=== PATIENT | female | born 1990 | race Caucasian/White ===

== ENCOUNTER 2022-07-06 16:06 | Day surgery (SDC) | payer BC, OTHER ==
[2022-07-06 17:24] VITALS: BMI 26.8
[2022-07-06] MEDS ORDERED: hydrALAZINE 20 MG/ML VIAL SLOW IVP PRN (18:06)
== END 2022-07-06 18:20 | disposition home or self-care (01) ==
LOC: CSHLD/OP 16:06
PROVIDERS: ATTEND Obstetrics & Gynecology
DX: O47.02 False labor before 37 completed weeks of gestation, second trimester (principal); O09.33 Supervision of pregnancy with insufficient antenatal care, third trimester; Z80.41 Family history of malignant neoplasm of ovary; Z3A.39 39 weeks gestation of pregnancy
CPT/HCPCS: 99282

== ENCOUNTER 2022-07-15 16:26 | Inpatient (IN) | payer BC ==
[~2022-07-15 16:26] MED LIST: Bupivacaine/Epinephrine 0.25% 30 ML VIAL ONE
[2022-07-15] MEDS ORDERED: Ibuprofen 800 MG TAB PO PRN (17:18)
[2022-07-15] MEDS ORDERED: Promethazine HCl 25 MG/ML VIAL IM PRN ×2 (17:18→18:50)
[2022-07-15] MEDS ORDERED: Lidocaine 1% (PF) 30 ML VIAL SC PRN (17:18)
[2022-07-15] MEDS ORDERED: Misoprostol 200 MCG TAB PR PRN (17:18)
[2022-07-15] MEDS ORDERED: Ondansetron PF 4 MG/2 ML Vial IVP PRN ×3 (17:18→23:20)
[2022-07-15] MEDS ORDERED: HYDROcodone/Acetaminophen 5/325 mg Tablet PO PRN ×4 (17:18→23:20)
[2022-07-15] MEDS ORDERED: hydrALAZINE 20 MG/ML VIAL SLOW IVP PRN ×2 (17:18→23:20)
[2022-07-15 17:30] VITALS: BMI 29.9
[2022-07-15] MEDS ORDERED: NS w/ Oxytocin 30 units 500 ML IV SCH (17:30)
[2022-07-15] MEDS ORDERED: Lactated Ringer's 1,000 ML IV SCH (17:30)
[2022-07-15 18:13] LABS: Hemoglobin 12.9 g/dL (12.0-15.5); Mean Corpuscular HGB CONC 33.3 g/dL (32.0-36.0); Mean Corpuscular Hemoglobin 28.2 pg (27.0-33.0); Mean Corpuscular Volume 84.7 fl (81.6-98.3); Mean Platelet Volume 10.4 fl (7.4-10.4); Platelet Count 255 10x3/uL (150-450); RBC Distribution Width 13.9 % (11.5-14.5); Red Blood Cell (RBC) Count 4.57 10x6/uL (3.90-5.03); White Blood Cell (WBC) Count 16.4 10x3/uL (3.5-10.5)
[2022-07-15 18:42] LABS: Syphilis Antibody Nonreactive (Nonreactive); Syphilis Antibody Index 0.03 S/CO (<1.00 Non-Reactive)
[2022-07-15 18:43] LABS: HBSAg Index 0.09 S/CO (0-0.99); Hep B Surf Ag - L&D Non-Reactive S/CO (NonReactive)
[2022-07-15] MEDS ORDERED: Lactated Ringer's 500 ML IV PRN (18:50)
[2022-07-15] MEDS ORDERED: ePHEDrine Sulfate 50 MG/10 ML VIAL SLOW IVP PRN (18:50)
[2022-07-15] MEDS ORDERED: diphenhydrAMINE 50 MG/ML VIAL IVP PRN (18:50)
[2022-07-15] MEDS ORDERED: Acetaminophen 325 MG TAB PO PRN (18:50)
[2022-07-15] MEDS ORDERED: Naloxone HCl 0.4 mg/ml Vial IVP PRN ×2 (18:50)
[2022-07-15] MEDS ORDERED: Moisturizing Cream (Eucerin) 113 GM JAR TOP PRN (18:50)
[2022-07-15] MEDS ORDERED: Communication Order-Pharmacy FS SCH (19:00)
[2022-07-15] MEDS ORDERED: Fentanyl 2 mcg/Bupivacaine 0.1% Cassette 100 ML EPIDURAL SCH (19:00)
[2022-07-15] MEDS ORDERED: Bisacodyl 10 MG SUPP PR PRN (23:20)
[2022-07-15] MEDS ORDERED: Benzocaine-Menthol 82.5 ML CAN TOP PRN (23:20)
[2022-07-15] MEDS ORDERED: Misoprostol 200 MCG TAB VAG PRN (23:20)
[2022-07-15] MEDS ORDERED: Milk Of Magnesia 30 ML UDCUP PO PRN (23:20)
[2022-07-15] MEDS ORDERED: Lanolin Ointment 7 GM TUBE TOP PRN (23:20)
[2022-07-15] MEDS ORDERED: Boostrix 0.5 ML (Tdap) VIAL (>/=7 yrs of age) IM ONE (23:20)
[2022-07-16] MEDS: Ibuprofen 800 MG TAB PO SCH ×4 (05:43→21:49)
[2022-07-16] MEDS: Ferrous Sulfate 325 MG TAB PO SCH ×2 (07:24→16:49)
[2022-07-16] MEDS: Prenatal Vitamin 1 TAB PO SCH (08:39)
[2022-07-16] MEDS: Docusate 100 MG CAP PO SCH ×2 (08:39→21:49)
[2022-07-17] MEDS: Ibuprofen 800 MG TAB PO SCH (06:15)
[2022-07-17 08:08] VITALS: BP 109/59; TEMP 97.6
[2022-07-17] MEDS: Prenatal Vitamin 1 TAB PO SCH (08:22)
[2022-07-17] MEDS: Docusate 100 MG CAP PO SCH (08:22)
[2022-07-17] MEDS: Ferrous Sulfate 325 MG TAB PO SCH (09:43)
== END 2022-07-17 13:25 | disposition home or self-care (01) | DRG 807 ==
LOC: CSHLD/OP 16:26 → CSHLD 16:57 → CSHPP 23:48
PROVIDERS: ADMIT Obstetrics & Gynecology; ATTEND Obstetrics & Gynecology
PROC: 10E0XZZ Delivery of Products of Conception, External Approach (ICD-10-PCS; principal; 2022-07-15)
PROC: 0KQM0ZZ Repair Perineum Muscle, Open Approach (ICD-10-PCS; 2022-07-15)
DX: O42.02 Full-term premature rupture of membranes, onset of labor within 24 hours of rupture (principal); Z37.0 Single live birth; O69.81X0 Labor and delivery complicated by cord around neck, without compression, not applicable or unspecified; O70.1 Second degree perineal laceration during delivery; Z88.2 Allergy status to sulfonamides; Z3A.40 40 weeks gestation of pregnancy
CPT/HCPCS: 36415; 85027; 86780; 86850; 86900; 86901; 87340